=== PATIENT | male | born 1965 | race Caucasian/White ===

== ENCOUNTER → 2017-04-04 | Day surgery (SDC) | payer BC ==
[2017-03-28 09:11] VITALS: Ht 177.8 cm; Wt 75.0 kg
[~2017-04-04] VITALS: Ht 177.8 cm; Wt 75.0 kg
[~2017-04-04] MED LIST: CYAN100020 PO; LIDOCAINE HCL 2% 2 ML VIAL (20MG/ML) ONE; MIDAZOLAM HCL 1 MG/ML 2ML VIAL ONE; ONDANSETRON INJ 2 MG/ML 2 ML VIAL ONE; PROPOFOL IV EMULSION 10 MG/ML 20 ML VIAL IV ONE; SODIUM CHLORIDE 0.9% 500ML 500 ML IV ONE; TRIA3AER NAE
[2017-04-04 10:26] VITALS: TEMP 36.8
--- NOTE | 2017-04-04 10:57 | Endo History and Physical ---
History & Physical Date of Service: April 04, 2017. Chief Complaint: screening Referring Physician: Dr. Melania Howell History of Present Illness 51 yo CM who presents for screening colonoscopy. Past Surgical History Hx Cardiac Surgery: No Hx Internal Defibrillator: No Hx Pacemaker: No Hx Abdominal Surgery: No Hx of Implantable Prosthesis: No Hx Post-Op Nausea and Vomiting: No Hx Cancer Surgery: No Hx Thoracic Surgery: No Hx Orthopedic: No Hx Urinary Tract Surgery: No Family History Colon CA Social History Smoking Status: Never Smoker Hx Substance Use: No Hx Alcohol Use: Yes (OCCASIONALLY) Allergies Coded Allergies: Hydrocodone (Verified Adverse Reaction, Unknown, NAUSEA/VOMITTING, 03/28/17) Current Medications Reported Home Medications Medications Dose Route/Sig Max Daily Dose Days Date Category Vitamin B12 (Cyanocobalamin) 1,000 Mcg Tab 1 Tab PO QPM 03/28/17 Reported Nasacort-Aq Nasal Inh (Triamcinolone Acetonide) Aers 2 Sprays AWA QAM 09/02/14 Reported Vital Signs Weight (Kilograms): 75 Height (Feet): 5 Height (Inches): 10 Date Time Temp Pulse Resp B/P Pulse Ox O2 Delivery O2 Flow Rate FiO2 04/04/17 10:26 36.8 58 18 127/73 100 Room Air Physical Exam General Appearance: WD/WN, no apparent distress Respiratory/Chest: Auscultation: breath sounds normal Cardiovascular: Heart Auscultation: RRR Abdomen: Bowel Sounds: normal Inspection & Palpation: soft, non-distended, no tenderness, guarding & rebound Assessment and Plan Assessment: 51 yo CM who presents for screening colonoscopy. Plan: Proceed with colonoscopy.
--- NOTE | 2017-04-04 11:29 | Discharge Instructions ---
Endoscopy Patient Instructions Date / Procedure(s) Performed April 04, 2017. Colonoscopy Allergy Information Coded Allergies: Hydrocodone (Verified Adverse Reaction, Unknown, NAUSEA/VOMITTING, 03/28/17) Discharge Date / Findings April 04, 2017. Colon polyps Internal hemorrhoids Medication Instructions OK to resume all medications today as prescribed Reported Home Medications Medications Dose Route/Sig Max Daily Dose Days Date Category Vitamin B12 (Cyanocobalamin) 1,000 Mcg Tab 1 Tab PO QPM 03/28/17 Reported Nasacort-Aq Nasal Inh (Triamcinolone Acetonide) Aers 2 Sprays AWA QAM 09/02/14 Reported Provider Instructions Activity Restrictions - No exercising or heavy lifting for 24 hours. - Do not drink alcohol the day of the procedure. - Do not drive a car or operate machinery until the day after the procedure. - Do not make any important decisions or sign important papers in 24 hours after the procedure. Following Day: - Return to full activity which may include returning to work/school. Diet Start your diet with liquids and light foods (jello, soup, juice, toast). Then eat your usual diet if not nauseated. Treatment For Common After Affects For mild abdominal pain, bloating, or excessive gas: - Rest - Eat lightly - Lie on right side Follow-Up Information Follow-up with Dr. Melania Howell as scheduled Anesthesia Information What You Should Know You have had a procedure that required some medicine to reduce anxiety and discomfort. This treatment is called moderate sedation. After receiving the treatment, you may be sleepy, but you will be able to breathe on your own. The effects of the treatment may last for several hours. Follow these instructions along with Activity/Diet recommendations noted above: * Do NOT do anything where dizziness or clumsiness would be dangerous. * Rest quietly at home today, then you can be up and about tomorrow. * Have a responsible person stay with you the rest of today. * You may have had an I.V. today. If so, you may take the dressing off later today. Recommendations Call your doctor if: * Trouble breathing * Continuous vomiting for more than 24 hours * Temperature above 101 degrees * Severe abdominal pain or bloating * Pain not relieved by pain medicine ordered * There is increased drainage or redness from any incision * A large amount of rectal bleeding greater than 2-3 tablespoons. (If you had a polyp/s removed or have hemorrhoids, a small amount of blood - from the rectum is to be expected.) * You have any unanswered questions or concerns. IN THE EVENT OF A SERIOUS EMERGENCY, GO TO THE NEAREST EMERGENCY ROOM Your discharge instructions were prepared by provider Alex Hinton. Patient Instructions Signature Page Lebron Morin Patient (or Guardian) Signature/Date: I have read and understand the instructions given to me by my caregivers. Caregiver/RN/Doctor Signature/Date: The above-named patient and/or guardian has received patient instructions on this date. + Original Patient Signature Page (only) stays with chart. Please make copy for patient.
[2017-04-04 11:52] VITALS: PULSE 55; O2SAT 98
[2017-04-04 11:56] VITALS: BP 111/69
--- NOTE | 2017-04-04 12:39 | Anesthesiology Progress Note ---
Anesthesia Post Op Note Date & Time April 04, 2017 at 12:38 Vital Signs Pain Intensity: 0 Vital Signs Past 12 Hours Date Time Temp Pulse Resp B/P Pulse Ox O2 Delivery O2 Flow Rate FiO2 04/04/17 11:56 111/69 04/04/17 11:52 55 18 99/59 98 Room Air 04/04/17 11:37 61 18 111/58 98 Room Air 04/04/17 11:22 63 16 103/65 96 Nasal Cannula 2 04/04/17 10:26 36.8 58 18 127/73 100 Room Air Notes Mental Status: alert / awake / arousable, participated in evaluation Pt Amnestic to Procedure: Yes Nausea / Vomiting: adequately controlled Pain: adequately controlled Airway Patency, RR, SpO2: stable & adequate BP & HR: stable & adequate Hydration State: stable & adequate Neuraxial Anesthesia: was administered, sensory block is resolving Anesthetic Complications: no major complications apparent
== END | disposition home or self-care (01) ==
LOC: C.GI 09:36
PROVIDERS: ATTEND Internal Medicine
DX: Z12.11 Encounter for screening for malignant neoplasm of colon (principal); D12.2 Benign neoplasm of ascending colon; D12.0 Benign neoplasm of cecum; K64.8 Other hemorrhoids; Z80.0 Family history of malignant neoplasm of digestive organs; Z68.23 Body mass index [BMI] 23.0-23.9, adult

== ENCOUNTER → 2017-05-28 | Outpatient (CLI) | payer BC ==
[~2017-05-28] MED LIST changes: -LIDOCAINE HCL 2% 2 ML VIAL (20MG/ML) ONE; -MIDAZOLAM HCL 1 MG/ML 2ML VIAL ONE; -ONDANSETRON INJ 2 MG/ML 2 ML VIAL ONE; -PROPOFOL IV EMULSION 10 MG/ML 20 ML VIAL IV ONE; -SODIUM CHLORIDE 0.9% 500ML 500 ML IV ONE
[2017-05-28 13:32] LABS: BASO % 0.6 %; BASO ABS # 0.04 K/uL (0-0.2); COMPLETE YES; EOS % 2.1 %; HEMATOCRIT 44.3 % (42-52); IG% 0.3 %; LYMPH ABS # 1.63 K/uL (1.2-3.4); MEAN CELL VOLUME 92.1 fL (80-100); MEAN CORPUSCULAR HGB CONC 34.8 g/dl (32-36); MEAN PLATELET VOLUME 11.7 fL (7.4-10.4); MONO % 10.9 %; NEUT % 60.1 %; PLATELET COUNT 207 K/uL (130-400); RED BLOOD COUNT 4.81 M/uL (4.7-6.1); WHITE BLOOD COUNT 6.26 K/uL (4.8-10.8)
[2017-05-28 13:57] LABS: BLOOD UREA NITROGEN 18 mg/dl (7-18); CALCIUM 9.3 mg/dl (8.5-10.1); CARBON DIOXIDE 27 mmol/L (21-32); CHLORIDE 107 mmol/L (98-107); GLUCOSE 80 mg/dl (70-99); POTASSIUM 4.1 mmol/L (3.5-5.1); SODIUM 141 mmol/L (136-145)
[2017-05-28 14:08] LABS: ALB/GLOB RATIO 1.5 (0.9-2); ALKALINE PHOSPHATASE 64 U/L (45-117); ALT/SGPT 34 U/L (12-78); AST/SGOT 18 U/L (15-37)
[2017-05-28 18:49] LABS: LYME DISEASE AB IGM NEG (NEG)
[2017-05-28 18:52] LABS: LYME DISEASE AB IGG NEG (NEG)
== END | disposition home or self-care (01) ==
LOC: C.LABBC 11:08
PROVIDERS: ATTEND Physician Assistant
DX: G37.9 Demyelinating disease of central nervous system, unspecified (principal); M47.812 Spondylosis without myelopathy or radiculopathy, cervical region

== ENCOUNTER → 2017-06-01 | Outpatient (CLI) | payer BC ==
[~2017-06-01] MED LIST changes: +GADAVIST IV PRN
--- NOTE | 2017-06-01 18:53 | DIAGNOSTIC IMAGING REPORT ---
MRI CERVICAL SPINE COMBO CLINICAL HISTORY: G37.9 Demyelinating [id number] Cervical spondylosis TECHNIQUE: Sagittal and axial T1, T2 and STIR images were obtained. Imaging was obtained before and after the administration of 7.5 cc of intravenous Gadavist. COMPARISON STUDY: 06/24/2008 The examination is mildly compromised secondary to patient motion artifact. There are no suspicious areas of marrow replacement. There is a focus of increased T2 signal within the right posterior hemicord at the C5 level. This is consistent with a demyelinating plaque. This lesion remains similar to the prior 2007 study. The previous lesion described at the C6 level, is barely discernible on the current study. C2-3: There is no evidence of disc bulge or focal herniation. There is no spinal or foraminal stenosis. C3-4: There is no evidence of disc bulge or focal herniation. There is no spinal or foraminal stenosis. C4-5: There is a minor circumferential disc bulge. There is no significant spinal or foraminal stenosis C5-6 :There is a minimal circumferential disc bulge. There is no significant spinal or foraminal stenosis C6-7: There is a minor circumferential disc bulge. There is no significant spinal or foraminal stenosis. C7-T1: There is no evidence of disc bulge or focal herniation. There is no evidence of spinal or foraminal stenosis. There are no pathologically enhancing lesions. IMPRESSION: 1. Technically limited study secondary to motion artifact 2. Minor multilevel spondylitic changes. No evidence of significant spinal or foraminal stenosis 3. Focus of increased T2 signal within the right posterior hemicord at the C5 level. This remains unchanged from the prior 2007 study, and is consistent with a demyelinating focus. 4. Interval decrease in the size and conspicuity of the previously identified lesion at the C6 level. 5. No evidence of pathologic enhancement Electronically signed by: Micah Franco M.D. 06/01/2017 6:52 PM Dictated Date/Time: 06/01/2017 6:43 PM
== END | disposition home or self-care (01) ==
LOC: C.MRI 17:14
PROVIDERS: ATTEND Physician Assistant
DX: G37.9 Demyelinating disease of central nervous system, unspecified (principal); M47.812 Spondylosis without myelopathy or radiculopathy, cervical region

== ENCOUNTER → 2017-06-25 | Outpatient (CLI) | payer BC ==
--- NOTE | 2017-06-25 08:48 | DIAGNOSTIC IMAGING REPORT ---
LUMBAR SPINE COMBINATION CLINICAL HISTORY: 52 years-old Male presenting with demyelinating disorder, numbness, bilateral feet and groin tingling, bilateral hip pain for 2 years, increasing, no trauma. TECHNIQUE: Multisequence, multiplanar MR imaging of the lumbar spine was performed before and after the administration of intravenous contrast. IV contrast: 7.5 mL of Gadavist. COMPARISON: Correlation made to CT of the abdomen and pelvis from 2014. FINDINGS: Normal lumbar lordosis. Vertebral bodies maintain normal height, alignment, bone marrow signal intensity. Intervertebral disc spaces preserved with the exception of L1-2, where there is mild height loss. At this level, there is focal mild degenerative change at L1-2 with anterior osteophytosis and mild disc bulge. Minimal effacement of the ventral thecal sac without significant spinal canal narrowing. No significant neural foraminal narrowing. Remaining levels are essentially free of degenerative change. 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 No abnormal enhancement on postcontrast imaging. The spinal cord ends in good position at L1. Spinal cord maintains normal morphology and signal intensity. No abnormal enhancement of the spinal cord. Cauda equina normal. No abnormal enhancement of the cauda equina. No paraspinal soft tissue edema. Paraspinal soft tissues normal. IMPRESSION: 1. No abnormal signal intensity or enhancement within the spinal cord or cauda equina to suggest edema disorder. 2. Focal mild degenerative change at L1 to without significant spinal canal or neural foraminal narrowing. Electronically signed by: Rui Garcia M.D. 06/25/2017 8:47 AM Dictated Date/Time: 06/25/2017 8:41 AM
== END | disposition home or self-care (01) ==
PROVIDERS: ATTEND Physician Assistant
DX: R20.0 Anesthesia of skin (principal); G37.9 Demyelinating disease of central nervous system, unspecified

== ENCOUNTER → 2017-07-23 | Outpatient (CLI) | payer BC ==
--- NOTE | 2017-07-23 14:07 | DIAGNOSTIC IMAGING REPORT ---
THORACIC SPINE COMBO CLINICAL HISTORY: 52 years-old Male presenting with numbness down both legs, left more than right, genital numbness, loss of sensation, history of demyelinating disease. TECHNIQUE: Multisequence, multiplanar MR imaging of the thoracic spine was performed before and after the administration of intravenous contrast. IV contrast: 7 mL of Gadavist. COMPARISON: Correlation made to CT of the abdomen and pelvis from 2013. FINDINGS: Vertebral body heights, alignment, and bone marrow signal intensity normal. Intervertebral disc spaces preserved. No significant degenerative change. No significant neural foraminal or spinal canal narrowing. Spinal cord normal in morphology and signal intensity. Spinal cord ends in good position at the superior endplate of L1. No abnormal enhancement on postcontrast imaging. Dependent changes in the lungs likely atelectasis. IMPRESSION: No abnormality of the thoracic spinal cord. No significant degenerative change or evidence of neural foraminal or spinal canal stenosis. Electronically signed by: Rui Garcia M.D. 07/23/2017 2:05 PM Dictated Date/Time: 07/23/2017 2:00 PM
--- NOTE | 2017-07-23 14:18 | DIAGNOSTIC IMAGING REPORT ---
PELVIC COMBO HISTORY: 52 years-old Male patient presents with acute numbness and loss of sensation within the genital region. COMPARISON: Thoracic spine MRI of same day, lumbar spine MR 06/25/2017, CT abdomen and pelvis 09/02/2014. TECHNIQUE: Multiplanar multisequence MRI of the sacrum was obtained both with and without the use of 7 mL Gadavist. FINDINGS: The large field of view software applications architect images demonstrate no gross abnormality of the imaged abdomen or pelvis. Minimal posterior annular disc bulging is seen at the lower lumbar spine without high-grade central canal or foraminal narrowing. No focal bone marrow edema or fracture identified. No erosive changes of the sacroiliac joints are identified. The bilateral sacral foramina appear patent without focal mass or abnormal enhancement. No focal soft tissue lesion or collection. The coccyx also appears unremarkable. 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 IMPRESSION: 1. No focal abnormal signal or enhancement identified involving the sacrum or coccyx. 2. No high-grade central canal or foraminal narrowing identified within the lower lumbar spine or sacral region. The above report was generated using voice recognition software. It may contain grammatical, syntax or spelling errors. Electronically signed by: Jose Juan Hill M.D. 07/23/2017 2:17 PM Dictated Date/Time: 07/23/2017 2:10 PM
== END | disposition home or self-care (01) ==
LOC: C.MRIBC 11:36
PROVIDERS: ATTEND Physician Assistant
DX: G37.9 Demyelinating disease of central nervous system, unspecified (principal); R20.0 Anesthesia of skin

== ENCOUNTER → 2017-10-11 | Outpatient (CLI) | payer BC ==
[~2017-10-11] MED LIST changes: -GADAVIST IV PRN
[2017-10-11 11:16] LABS: CHOLESTEROL/HDL RATIO 3.2; PROSTATE SPECIFIC ANTIGEN 1.33 ng/ml (0.000-4.000)
== END | disposition home or self-care (01) ==
LOC: C.LABBC 09:08
PROVIDERS: ATTEND Family Medicine
DX: Z13.220 Encounter for screening for lipoid disorders (principal); Z12.5 Encounter for screening for malignant neoplasm of prostate; Z13.1 Encounter for screening for diabetes mellitus

== ENCOUNTER → 2017-11-01 | Outpatient (CLI) | payer BC ==
--- NOTE | 2017-11-01 14:46 | DIAGNOSTIC IMAGING REPORT ---
KUB HISTORY: N20.0 [id number] COMPARISON: KUB 10/28/2015, CT 09/02/2014. FINDINGS: The bowel gas pattern is non-obstructive. Moderate volume of formed colonic stool. There is no organomegaly. No ureteral calculi. Renal shadows are mostly obscured by bowel gas. Punctate radiodensity of the right upper abdomen is noted at the level of L2-L3. No pneumoperitoneum or pneumatosis. No fracture. IMPRESSION: Punctate radiodensity of the right upper abdomen at the level of L2-L3 is suspicious for possible right-sided nephrolithiasis. No definite left nephrolithiasis or ureteral calculi identified. Electronically signed by: Jose Juan Hill M.D. 11/01/2017 2:45 PM Dictated Date/Time: 11/01/2017 2:43 PM
== END | disposition home or self-care (01) ==
LOC: C.RADBC 14:13
PROVIDERS: ATTEND Urology
DX: N20.0 Calculus of kidney (principal)

== ENCOUNTER → 2018-06-18 | Outpatient (CLI) | payer OTHER ==
--- NOTE | 2018-06-18 15:28 | DIAGNOSTIC IMAGING REPORT ---
CHEST 2 VIEWS ROUTINE CLINICAL HISTORY: R05 Cough dyspnea COMPARISON STUDY: No previous studies for comparison. FINDINGS: 7 mm nodular density peripheral aspect right midlung. Lungs otherwise are clear. Diaphragms are smooth. The costophrenic angles are sharp. IMPRESSION: Possible 7 mm nodular density peripheral aspect right midlung. CT of the chest suggested as follow-up. The above report was generated using voice recognition software. It may contain grammatical, syntax or spelling errors. Electronically signed by: Bhaskar Church M.D. 06/18/2018 3:26 PM Dictated Date/Time: 06/18/2018 3:25 PM
== END | disposition home or self-care (01) ==
LOC: C.RADBC 15:13
PROVIDERS: ATTEND Nurse Practitioner Family
DX: R05 Cough (principal); R06.00 Dyspnea, unspecified

== ENCOUNTER → 2018-06-18 | Outpatient (CLI) | payer OTHER | END | disposition home or self-care (01) | LOC: C.LABSPEC 16:44 | PROVIDERS: ATTEND Nurse Practitioner Family | DX: J02.9 Acute pharyngitis, unspecified (principal) ==

== ENCOUNTER → 2018-06-24 | Outpatient (CLI) | payer OTHER ==
--- NOTE | 2018-06-24 13:45 | DIAGNOSTIC IMAGING REPORT ---
CT SCAN OF THE CHEST WITHOUT IV CONTRAST CLINICAL HISTORY: Pulmonary nodule. COMPARISON STUDY: Chest x-ray dated 06/18/2018. TECHNIQUE: CT scan of the thorax was performed from the thoracic inlet to the upper abdomen. Images are reviewed in the axial, sagittal, and coronal planes. IV contrast was not administered for this examination as per the referring clinician. A dose lowering technique was utilized adhering to the principles of ALARA. CT DOSE: 372.58 mGycm FINDINGS: Thyroid: Imaged portions of the thyroid gland are normal in size and attenuation. Thoracic aorta: The thoracic aorta is normal in caliber and demonstrates standard 3-vessel arch anatomy. Heart: The heart is normal in size and without pericardial effusion. Lungs and pleural spaces: There is no airspace consolidation or pleural effusion. The trachea and central airways are clear. There is an irregular nodular opacity in the right upper lobe along the minor fissure seen on axial image #145. This measures 2.3 x 1.0 cm and corresponds to the lesion seen by chest x-ray on 06/18/2018. No additional pulmonary lesion is identified. Mediastinum: There is no mediastinal lymphadenopathy. Unique: Not well assessed without IV contrast. Axillae: There is no axillary lymphadenopathy. Upper abdomen: Partially visualized upper abdominal viscera is within normal limits. Skeletal structures: No lytic or blastic bony lesions are seen. IMPRESSION: 1. There is a 2.3 x 1.0 cm irregular opacity in the right upper lobe along the minor fissure, which corresponds to the abnormality seen by chest x-ray. This is pathologically indeterminant, and although this could be on an inflammatory basis neoplasm is not excluded. A 2-3 month follow-up chest CT is recommended for reassessment. 2. No additional pulmonary lesion is identified. 3. There is no airspace consolidation or pleural effusion. Electronically signed by: Mikey Ornelas M.D. 06/24/2018 1:43 PM Dictated Date/Time: 06/24/2018 1:25 PM
== END | disposition home or self-care (01) ==
LOC: C.CTS 13:14
PROVIDERS: ATTEND Nurse Practitioner Family
DX: R91.1 Solitary pulmonary nodule (principal); R91.8 Other nonspecific abnormal finding of lung field